=== PATIENT | male | born 1955 | race Hispanic/Latino ===

== ENCOUNTER 2019-01-09 09:46 | Emergency (ER) | payer BC ==
[~2019-01-09] VITALS: Ht 180.3 cm; Wt 111.1 kg
[~2019-01-09 09:46] MED LIST: ASPIRIN325 MG PO; DICYCLOMINE PO; HYDROCHLOROTHIA25 MG PO; NORCO 7.5-3251 EACH PO
[2019-01-09] MEDS ORDERED: IBUPROFEN 200 MG TAB PO STA (10:22)
[2019-01-09] MEDS ORDERED: LIDOCAINE HCL 1% LOCAL INJ 20 ML VIAL INJ STA (10:22)
[2019-01-09] MEDS ORDERED: HYDROCODONE/APAP 5MG-325MG TAB PO ONE (10:30)
[2019-01-09] MEDS ORDERED: ONDANSETRON HCL 4 MG ORAL DISINTEGRATING TAB PO ONE (10:30)
[2019-01-09] MEDS ORDERED: ONDANSETRON HCL 4 MG ORAL DISINTEGRATING TAB ONE (10:52)
[2019-01-09] MEDS ORDERED: HYDROCODONE/APAP 5MG-325MG TAB ONE (10:58)
[2019-01-09] MEDS ORDERED: IBUPROFEN 200 MG TAB ONE (10:58)
--- NOTE | 2019-01-09 11:00 | Diagnostic Imaging Report ---
Cervical Spine Two Views CPT code: 43727 Indication: Nerve pain Technique: AP, swimmer's and lateral views of cervical spine obtained. Comparison: None Findings: Cervical vertebral bodies can be visualized to C7. Mild forward flexion at C4/5. No listhesis. No prevertebral soft tissue swelling. Disc space narrowing is identified at C4/5 and C5/6. Osteophyte formation is seen at C4, C5, C6. The facets and spinous processes are normally aligned. Alignment is maintained on the AP view. The lateral masses of C1 are symmetric. The dens is intact. The skull base and upper chest normal. IMPRESSION: Degenerative changes of the spine with mild forward flexion at C4/5. Signed by: Dr. Tania Morejon MD on 01/09/2019 10:57 AM
[2019-01-09 12:21] VITALS: BP 119/73
== END 2019-01-09 11:40 | disposition home or self-care (01) ==
LOC: FSED 09:46
DX: L02.213 Cutaneous abscess of chest wall (principal); L03.313 Cellulitis of chest wall; M54.2 Cervicalgia; M47.892 Other spondylosis, cervical region; M50.20 Other cervical disc displacement, unspecified cervical region
CPT/HCPCS: 10061; 72040; 96372; 99283; J2001; Q0162

== ENCOUNTER → 2019-02-16 | Outpatient (CLI) | payer BC ==
--- NOTE | 2019-02-16 12:24 | Diagnostic Imaging Report ---
EXAMINATION: MRI of the cervical spine without contrast HISTORY: Neck pain radiating into the right shoulder and upper extremity with numbness and extending to the fingers COMPARISON: Cervical spine x-rays of 01/09/2019. TECHNIQUE: Sagittal T1, T2, STIR; axial T2, gradient echo. Image quality: Motion artifact limits evaluation of some of the sequences. FINDINGS: Curvature: Straightening of the cervical lordosis which may be related to muscle with possible positional. Vertebrae: Diffuse increase T1 and T2 signal intensity within the C4, C5, C6, C7 and T1 as well as the partially visualized T4 vertebral bodies, which may be related to fatty replacement perhaps from prior radiation therapy in the appropriate clinical setting or artifactual. Focal high T1 and T2 hyperintensity in the T4 vertebral body may correspond alternatively to a hemangioma. Otherwise no evidence of neoplasm, infection, or fracture. Foramen magnum: No mass, Chiari malformation, or basilar invagination. Spinal Cord: Normal size and signal intensity. Soft Tissues: Unremarkable. Degenerative changes: C1-C2: Unremarkable. C2-C3: Mild facet arthrosis without canal or foraminal stenosis. C3-C4: Minimal disc bulge, mild uncovertebral and facet arthrosis. Mild bilateral foraminal narrowing. C4-C5: Mild facet arthrosis without stenosis C5-C6: Disc osteophyte complex formation, bilateral uncovertebral and facet arthrosis. Mild spinal canal and severe bilateral foraminal stenoses, compression upon the exiting C6 nerve roots is suspected. C6-C7: Disc osteophyte complex formation, bilateral uncovertebral and facet arthrosis. Mild canal narrowing. Severe bilateral foraminal stenoses. Compression upon the exiting C7 nerve roots cannot be excluded. C7-T1: Bilateral facet arthrosis mild bilateral foraminal stenosis. IMPRESSION: 1. Mild degenerative spinal canal stenosis at C5-C6 and C6-7. 2. Severe degenerative foraminal stenosis bilaterally at C5-C6 and C6-7 as described. 3. Normal cervical spinal cord. 4. Abnormal bone marrow signal intensity within the mid cervical spine as detailed above. Signed by: Dr. Patricia Carlson M.D. on 02/16/2019 12:20 PM
--- NOTE | 2019-02-16 15:27 | Diagnostic Imaging Report ---
TECHNIQUE: Magnetic resonance imaging of the RIGHT SHOULDER was performed WITHOUT injected contrast. HISTORY: Shoulder pain, arm pain COMPARISON: None available. FINDINGS: Motion artifact partially limits sensitivity and specificity of the exam. MUSCLES AND TENDONS: Rotator Cuff: Tendons: Supraspinatus and Infraspinatus: A full-thickness tear involving the anterior supraspinatus, the full-thickness defect measures 1.9 cm (ML) x 1.4 cm (AP). Teres Minor: Intact Subscapularis: Intact Muscles: No focal muscle atrophy. Biceps Tendon: The long head of the biceps tendon is intact and within the intertubercular groove. GLENOHUMERAL JOINT: Glenoid Labrum: The motion artifact limits evaluation of the labrum. The posterosuperior labrum appears attenuated with mild contour irregularity. On the axial images, there appears to be an oblique displaced tear at the base of the anteroinferior labrum, the motion artifacts prevent confirmation on the coronal views. Articular Cartilage: Diffuse intermediate to high-grade erosions of the glenoid cartilage. Joint Fluid: No effusion. ACROMIOCLAVICULAR JOINT: Mild hypertrophic degenerative changes of the acromioclavicular joint. No effusion. BONE: The acromion is unremarkable. No focal or infiltrative bone marrow replacing abnormality. No acute fracture. SOFT TISSUES: Trace fluid within the subacromial/subdeltoid bursa, in keeping with full-thickness rotator cuff tear. Moderate fluid within the subcoracoid recess. IMPRESSION: 1. Full-thickness tear involving the anterior supraspinatus tendon. 2. Moderate subcoracoid bursitis. 3. Oblique displaced tear at the base of the anteroinferior labrum and degenerative tearing of the posterosuperior labrum. 4. Mild glenohumeral and acromioclavicular osteoarthrosis. Signed by: Dr. Herbert Ramirez D.O., M.M.M. on 02/16/2019 3:24 PM
== END ==
LOC: MRI 09:31
PROVIDERS: ATTEND Specialist
DX: M54.2 Cervicalgia (principal); M25.511 Pain in right shoulder; S46.811A Strain of other muscles, fascia and tendons at shoulder and upper arm level, right arm, initial encounter; M75.51 Bursitis of right shoulder; M19.011 Primary osteoarthritis, right shoulder
CPT/HCPCS: 72141

== ENCOUNTER → 2019-03-16 | Day surgery (SDC) | payer BC ==
[2019-03-14 09:39] LABS: ANION GAP 14.6 mmol/L (8-16); BLOOD UREA NITROGEN 9 mg/dL (7-26); BUN/CREATININE RATIO 11 (6-25); CALCIUM 9.5 mg/dL (8.4-10.2); CARBON DIOXIDE 30 mmol/L (22-29); CHLORIDE 100 mmol/L (98-107); EST GLOMERULAR FILTRATION RATE > 60 ML/MIN (60-); GLUCOSE 88 mg/dL (74-118); POTASSIUM 4.6 mmol/L (3.5-5.1); SODIUM 140 mmol/L (136-145)
[~2019-03-16] MED LIST changes: +ACETAMINOPHEN 1000 MG/100 ML 100 ML IV ONE; +ACETAMINOPHEN 1000 MG/100 ML IV ONE; +CEFAZOLIN SOD 1 GM/NS 50ML 100 ML IV ONE; +DESFLURANE 240 ML BTL INH ONE; +DEXAMETHASONE SOD PHOS INJ 4 MG/ML VIAL ONE; +EPINEPHRINE 1 MG/ML 30ML VIAL ONE; +FENTANYL CITRATE/PF 100MCG/2 ML INJ ONE; +GLYCOPYRROLATE INJ 1MG/ 5 ML SYR ONE; +LIDOCAINE 2% /EPINEPHRINE 20 ML SDV INJ ONE; +LIDOCAINE HCL 2% LOCAL INJ 5 ML SDV VIAL INJ ONE; +MELOXICAM7.5 MG PO; +MIDAZOLAM HCL 2 MG/2 ML VIAL ONE; +NEOSTIGMINE 5 MG/5ML SYR ONE; +PANTOPRAZOLE SO40 MG PO; +PROPOFOL IV EMULSION 10 MG/ML 20 ML VIAL ONE; +ROCURONIUM BROMIDE 10 MG/ML 5ML VIAL ONE; +ROPIVACAINE 0.5% 5 MG/ML 30 ML SDV ONE; +SUCCINYLCHOLINE 200 MG/10 ML SYR ONE; +TRIAMTERENE-HCTZ1 EA PO; +ranitidine PO
--- OUTSIDE RECORDS SUMMARY | 2019-03-16 06:36 | XMS REPORT ---
[facility] Address Unknown Phone Unavailable Care Team Providers Care Senior Applications Engineer Name Role Phone JAVAD CAMERON Unavailable Unavailable Magda SANTOYO Unavailable Unavailable Problems This patient has no known problems. Allergies, Adverse Reactions, Alerts This patient has no known allergies or adverse reactions. Medications This patient has no known medications. Results Test Description Test Time Test Comments Text Results Atomic Results Result Comments MRI SHOULDER RIGHT WO 2019-02-16 15:08:00 [place] [address] Patient Name: QUIANA ASCENCIO MR #: [id number] : 1955 Age/Sex: 63/M Req #: [id number] Adm Physician: Ordered by: JAVAD CAMERON MD Report #: [id number] Location: MRI Room/Bed: Procedure: [id number] MRI/MRI SHOULDER RIGHT WO Exam Date: Exam Time: REPORT STATUS: Signed TECHNIQUE: Magnetic resonance imaging of the RIGHT SHOULDER was performed WITHOUT injected contrast. HISTORY: Shoulder pain, arm pain COMPARISON: None available. FINDINGS: Motion artifact partially limits sensitivity and specificity of the exam. MUSCLES AND TENDONS: Rotator Cuff: Tendons: Supraspinatus and Infraspinatus: A full-thickness tear involving the anterior supraspinatus, the full-thickness defect measures 1.9 cm (ML) x 1.4 cm (AP). Teres Minor: Intact Subscapularis: Intact Muscles: No focal muscle atrophy. Biceps Tendon: The long head of the biceps tendon is intact and within the intertubercular groove. GLENOHUMERAL JOINT: Glenoid Labrum: The motion artifact limits evaluation of the labrum. The posterosuperior labrum appears attenuated with mild contour irregularity. On the axial images, there appears to be an oblique displaced tear at the base of the anteroinferior labrum, the motion artifacts prevent confirmation on the coronal views. Articular Cartilage: Diffuse inter mediate to high-grade erosions of the glenoid cartilage. Joint Fluid: No effusion. ACROMIOCLAVICULAR JOINT: Mild hypertrophic degenerative changes of the acromioclavicular joint. No effusion. BONE: The acromion is unremarkable. No focal or infiltrative bone marrow replacing abnormality. No acute fracture. SOFT TISSUES: Trace fluid within the subacromial/subdeltoid bursa, in keeping with full-thickness rotator cuff tear. Moderate fluid within the subcoracoid recess. IMPRESSION: 1. Full-thickness tear involving the anterior supraspinatus tendon. 2. Moderate subcoracoid bursitis. 3. Oblique displaced tear at the base of the anteroinferior labrum and degenerative tearing of the posterosuperior labrum. 4. Mild glenohumeral and acromioclavicular osteoarthrosis. Signed by: Dr. Melo Ramirez D.O., M.M.M. on 02/16/2019 3:24 PM Dictated By: MELO RAMIREZ DO 1524 Transcribed By: Riaz CRONIN on 02/16/19 1524 COPY TO: JAVAD CAMERON MD MRI SPINE CERVICAL WO 2019-02-16 12:13:00 [place] [address] Patient Name: QUIANA ASCENCIO JR MR #: [id number] : 1955 Age/Sex: 63/M Req #: [id number] Adm Physician: Ordered by: JAVAD CAMERON MD Report #: [id number] Location: MRI Room/Bed: Procedure: [id number] MRI/MRI SPINE CERVICAL WO Exam Date: Exam Time: REPORT STATUS: Signed EXAMINATION: MRI of the cervical spine without contrast HISTORY: Neck pain radiating into the right shoulder and upper extremity with numbness and extending to the fingers COMPARISON: Cervical spine x-rays of 01/09/2019. TECHNIQUE: Sagittal T1, T2, STIR; axial T2, gradient echo. Image quality: Motion artifact limits evaluation of some of the sequences. FINDINGS: Curvature: Straightening of the cervical lordosis which may be related to muscle with possible positional. Vertebrae: Diffuse increase T1 and T2 signal intensity within the C4, C5, C6, C7 and T1 as well as the partially visualized T4 vertebral bodies, which may be related to fatty replacement perhaps from prior radiation therapy in the appropriate clinical setting or artifactual. Focal high T1 and T2 hyperintensity in the T4 vertebral body may correspond alternatively to a hemangioma. Otherwise no evidence of neoplasm, infection, or fracture. Foramen magnum: No mass, Chiari malformation, or basilar invagination. Spinal Cord: Normal size and signal intensity. Soft Tissues: Unremarkable. Degenerative changes: C1-C2: Unremarkable. C2-C3: Mild facet arthrosis without canal or foraminal stenosis. C3-C4: Minimal disc bulge, mild uncovertebral and facet arthrosis. Mild bilateral foraminal narrowing. C4-C5: Mild facet arthrosis without stenosis C5-C6: Disc osteophyte complex formation, bilateral uncovertebral and facet arthrosis. Mild spinal canal and severe bilateral foraminal stenoses, compression upon the exiting C6 nerve roots is suspected. C6-C7: Disc osteophyte complex formation, bilateral uncovertebral and facet arthrosis. Mild canal narrowing. Severe bilateral foraminal stenoses. Compression upon the exiting C7 nerve roots cannot be excluded. C7-T1: Bilateral facet arthrosis mild bilateral foraminal stenosis. IMPRESSION: 1. Mild degenerative spinal canal stenosis at C5-C6 and C6-7. 2. Severe degenerative foraminal stenosis bilaterally at C5-C6 and C6-7 as described. 3. Normal cervical spinal cord. 4. Abnormal bone marrow signal intensity within the mid cervical spine as detailed above. Signed by: Dr. Patricia Carlson M.D. on 02/16/2019 12:20 PM Dictated By: PATRICIA CARLSON MD 1220 Transcribed By: RAYRAY on 02/16/19 1220 COPY TO: JAVAD CAMERON MD SPINE 2--3 VE - [facility] 2019-01-09 10:53:00 [place] [address] Patient Name: QUIANA ASCENCIO JR MR #: [id number] : 1955 Age/Sex: 63/M Req #: [id number] Adm Physician: Ordered by: ERICA SANTOYO MD Report #: [id number] Location: [facility] Room/Bed: Procedure: [id number] MARIE/Riaz SPINE 2--3 VE - [facility] Exam Date: 01/09/19 Exam Time: 1040 REPORT STATUS: Signed Cervical Spine Two Views CPT code: 97537 Indication: Nerve pain Technique: AP, swimmer's and lateral views of cervical spine obtained. Comparison: None Findings: Cervical vertebral bodies can be visualized to C7. Mild forward flexion at C4/5. No listhesis. No prevertebral soft tissue swelling. Disc space narrowing is identified at C4/5 and C5/6. Osteophyte formation is seen at C4, C5, C6. The facets and spinous processes are normally aligned. Alignment is maintained on the AP view. The lateral masses of C1 are symmetric. The dens is intact. The skull base and upper chest normal. IMPRESSION: Degenerative changes of the spine with mild forward flexion at C4/5. Signed by: Dr. Tania Morejon MD on 01/09/2019 10:57 AM Dictated By: TANIA MOREJON MD [id number] Transcribed By: RAYRAY on 01/09/19 8594 COPY TO: ERICA SANTOYO MD
[2019-03-16 13:50] VITALS: BP 111/73
--- NOTE | 2019-03-18 13:41 | Operative Report ---
DATE OF PROCEDURE: 03/16/2019 SURGEON: Nabil Pina MD PREOPERATIVE DIAGNOSES: 1. Right shoulder rotator cuff tear. 2. Right shoulder acromioclavicular joint arthritis. POSTOPERATIVE DIAGNOSES: 1. Right shoulder rotator cuff tear. 2. Right shoulder acromioclavicular joint arthritis. OPERATIONS AND PROCEDURES PERFORMED: The patient underwent a right shoulder examination under anesthesia, right shoulder arthroscopy, right shoulder debridement of synovitis, right shoulder arthroscopic rotator cuff reconstruction, right shoulder arthroscopic distal clavicle resection. SCHOOL PSYCHOLOGY PROFESSOR: CHAYO Espinoza. ANESTHESIA: General endotracheal intubation anesthesia. IV FLUIDS: Per anesthesia record. BRIEF DESCRIPTION OF THE PATIENT'S OPERATIVE PROCEDURE: Mr. Goldman was taken to the operating room and placed in the supine position on the operating table. Following induction of general anesthesia as well as endotracheal intubation, the patient's right upper extremity was examined under anesthesia. He was found to have full passive range of motion of the shoulder joint. There was no evidence of instability. The patient's upper extremity was prepped and draped in standard surgical fashion. Standard posterior lateral and anterior portals were created without difficulty. The scope was placed within the shoulder joint atraumatically. Examination of the glenohumeral articulation found evidence of chondromalacia of the humeral head and glenoid surfaces. There were no loose bodies in the shoulder joint. There was a full-thickness rotator cuff tear along the anterior leading edge of the rotator cuff tissue. There was diffuse synovitis in the shoulder joint. A shaver was placed in the shoulder joint and the synovitis was debrided. Chondroplasties of the humeral head and glenoid were also performed at this time. The rotator cuff injury was also debrided. The insertion site for the rotator cuff was also debrided to a bleeding bony bed. The shoulder was inflated with sterile normal saline. The scope was placed in subacromial space and significant bursal inflammation was encountered. A lateral portal was created through an outside in technique. The shaver was placed in the subacromial space and a bursectomy was performed. The rotator cuff tear was easily identified. An anterolateral accessory portal was created. The rotator cuff injury was further debrided. The insertion site was also further debrided to a bleeding bony bed. A single triple loaded suture anchor was inserted into the greater tuberosity of the humerus. The suture arms from this anchor were then woven through the rotator cuff tissue. The rotator cuff tissue was then advanced and tied firmly over the insertion site. This resulted in complete reapproximation of the patient's rotator cuff injury. There was a significantly downward sloping acromion. The coracoacromial ligament was resected. An acromioplasty was performed at this time. Attention was then turned to the acromioclavicular joint. The anterior portal was transferred into the subacromial space. The shaver was then used to resect a 1 cm section of the distal clavicle. Once this was achieved, the scope was transferred to the anterior portal to confirm appropriate resection of the distal clavicle. The shoulder was inflated with sterile normal saline. The portal sites were closed and sterile dressings were applied. The patient was provided a shoulder immobilizer, awakened, and taken to the postanesthesia care in stable condition. Christina Kunz acted as dietary assistant for this case and was necessary for both prepping and draping the patient as well as the positioning of the arm and passage of sutures that allowed this case to be successful. MD MARLON Bustamante/CRISTIANE /[id number]
== END | disposition home or self-care (01) ==
LOC: OR 06:26
PROVIDERS: ATTEND Specialist
DX: M75.121 Complete rotator cuff tear or rupture of right shoulder, not specified as traumatic (principal); M19.011 Primary osteoarthritis, right shoulder; M54.12 Radiculopathy, cervical region; Z96.652 Presence of left artificial knee joint; Z01.810 Encounter for preprocedural cardiovascular examination; Z01.812 Encounter for preprocedural laboratory examination; M94.211 Chondromalacia, right shoulder; M65.811 Other synovitis and tenosynovitis, right shoulder
CPT/HCPCS: 29824; 29827; 36415; 80048; 93005; C1713; J0131; J0690; J1100; J2001 ×2; J2250; J2704; J2795; J3010; J3490

== ENCOUNTER → 2021-05-27 | Day surgery (SDC) | payer OTHER ==
[~2021-05-27] MED LIST changes: -ACETAMINOPHEN 1000 MG/100 ML 100 ML IV ONE; -ACETAMINOPHEN 1000 MG/100 ML IV ONE; -CEFAZOLIN SOD 1 GM/NS 50ML 100 ML IV ONE; -DESFLURANE 240 ML BTL INH ONE; -DEXAMETHASONE SOD PHOS INJ 4 MG/ML VIAL ONE; -EPINEPHRINE 1 MG/ML 30ML VIAL ONE; -GLYCOPYRROLATE INJ 1MG/ 5 ML SYR ONE; -LIDOCAINE 2% /EPINEPHRINE 20 ML SDV INJ ONE; -NEOSTIGMINE 5 MG/5ML SYR ONE; -ROCURONIUM BROMIDE 10 MG/ML 5ML VIAL ONE; -ROPIVACAINE 0.5% 5 MG/ML 30 ML SDV ONE; -SUCCINYLCHOLINE 200 MG/10 ML SYR ONE
[2021-05-27 13:50] VITALS: BP 107/68
== END | disposition home or self-care (01) ==
LOC: OR 10:26
PROVIDERS: ATTEND Internal Medicine Gastroenterology
DX: K21.9 Gastro-esophageal reflux disease without esophagitis (principal); K63.5 Polyp of colon; K29.60 Other gastritis without bleeding; K29.50 Unspecified chronic gastritis without bleeding; K20.90 Esophagitis, unspecified without bleeding; K57.30 Diverticulosis of large intestine without perforation or abscess without bleeding; K64.8 Other hemorrhoids; K44.9 Diaphragmatic hernia without obstruction or gangrene; Z85.01 Personal history of malignant neoplasm of esophagus; D49.1 Neoplasm of unspecified behavior of respiratory system; R03.0 Elevated blood-pressure reading, without diagnosis of hypertension; Z01.810 Encounter for preprocedural cardiovascular examination; Z01.812 Encounter for preprocedural laboratory examination; Z20.822 Contact with and (suspected) exposure to COVID-19; Z68.35 Body mass index [BMI] 35.0-35.9, adult; Z92.21 Personal history of antineoplastic chemotherapy; Z92.3 Personal history of irradiation; Z87.891 Personal history of nicotine dependence
CPT/HCPCS: 43239; 45378; 45384; 93005; J2001; J2250; J3010; U0002

== ENCOUNTER 2024-01-25 05:22 | Observation (INO) | payer MEDICARE ==
[2024-01-22 12:55] LABS: BASOPHILS % 0.3 % (0.0-1.0); EOSINOPHILS # (AUTO) 0.2 (0.0-0.4); HEMATOCRIT 46.9 % (38.2-49.6); HEMOGLOBIN 14.8 g/dL (14.0-18.0); LYMPHOCYTES # (AUTO) 2.7 (1.0-3.2); LYMPHOCYTES % 34.3 % (18.0-39.1); MEAN CORPUSCULAR HEMOGLOBIN 29.7 pg (28-32); MEAN CORPUSCULAR HGB CONC 31.6 g/dL (31-35); MONOCYTES # (AUTO) 0.7 (0.2-0.8); MONOCYTES % 8.1 % (4.4-11.3); NEUTROPHILS # (AUTO) 4.3 (2.1-6.9); NEUTROPHILS % 53.9 % (38.7-80.0); PLATELET COUNT 213 x10e3/uL (140-360); RED BLOOD COUNT 4.99 x10e6/uL (4.3-5.7); RED CELL DISTRIBUTION WIDTH 13.2 % (11.7-14.4); WHITE BLOOD COUNT 7.99 x10e3/uL (4.8-10.8)
[2024-01-22 13:16] LABS: ANION GAP 11.7 mmol/L (8-16); CALCIUM 9.6 mg/dL (8.4-10.2); CREATININE, SERUM 0.78 mg/dL (0.72-1.25); POTASSIUM 4.7 mmol/L (3.5-5.1)
[~2024-01-25 05:22] MED LIST changes: +ADVIL100 M1; +ATORVASTATIN CA20 MG PO; -FENTANYL CITRATE/PF 100MCG/2 ML INJ ONE; +FLOMAX0.4 MG PO; +FUROSEMIDE40 MG PO; -LIDOCAINE HCL 2% LOCAL INJ 5 ML SDV VIAL INJ ONE; +LOSARTAN-HCTZ1 EACH; -MIDAZOLAM HCL 2 MG/2 ML VIAL ONE; +OMEGA 3 1,0001 EACH PO; +OMEPRAZOLE10 MG; +OZEMPIC0.25 MG/02; -PROPOFOL IV EMULSION 10 MG/ML 20 ML VIAL ONE
[2024-01-25] MEDS: LACTATED RINGER'S 1,000 ML ONE (05:47)
[2024-01-25] MEDS: GABAPENTIN 300 MG CAP ONE (05:48)
[2024-01-25] MEDS: CEFAZOLIN SODIUM 2 GM ONE (05:48)
[2024-01-25] MEDS: CELECOXIB 200 MG CAP ONE (05:48)
[2024-01-25] MEDS: DEXAMETHASONE SOD PHOS 10 MG/1 ML VIAL ONE (05:48)
[2024-01-25] MEDS ORDERED: SODIUM CHLORIDE 0.9% 500ML 500 ML ONE (06:45)
[2024-01-25] MEDS ORDERED: TRANEXAMIC ACID 20 ML ONE (06:45)
[2024-01-25] MEDS ORDERED: Vancomycin IV 500 MG ONE (06:45)
[2024-01-25] MEDS ORDERED: FENTANYL CITRATE/PF 100MCG/2 ML INJ ONE ×3 (07:05→12:10)
[2024-01-25] MEDS ORDERED: ROPIVACAINE 0.5% 5 MG/ML 30 ML SDV ONE (07:06)
[2024-01-25] MEDS ORDERED: MIDAZOLAM HCL 2 MG/2 ML VIAL ONE (07:06)
[2024-01-25] MEDS ORDERED: LIDOCAINE 2% /EPINEPHRINE 20 ML SDV INJ ONE (07:06)
[2024-01-25] MEDS ORDERED: ROPIVACAINE 246.25 MG, EPINEPHRINE HCL 1:1000 1ML 0.5 MG, CLONIDINE HCL 0.08 MG, KETORO... INJ ONE (08:00)
[2024-01-25] MEDS ORDERED: HYDROCODONE/APAP 5MG-325MG TAB PO PRN (09:00)
[2024-01-25] MEDS ORDERED: ASPIRIN 325 MG TAB PO SCH (09:00)
[2024-01-25] MEDS ORDERED: DIPHENHYDRAMINE HCL INJ 50 MG/ML VIAL IV PRN (09:00)
[2024-01-25] MEDS ORDERED: ONDANSETRON HCL INJ 2MG/ML 2ML 2 MG/ML VIAL IV PRN (09:00)
[2024-01-25] MEDS ORDERED: DOCUSATE SODIUM 100 MG CAP PO PRN (09:00)
[2024-01-25] MEDS ORDERED: SODIUM CHLORIDE 0.9% 1000ML 1,000 ML IV SCH (09:00)
[2024-01-25] MEDS ORDERED: HYDROCODONE/APAP 7.5MG-325MG 1 EA TAB PO PRN (09:00)
[2024-01-25] MEDS: HYDROCODONE/APAP 7.5MG-325MG 1 EA TAB PO ONE (09:50)
[2024-01-25] MEDS ORDERED: HYDROCODONE/APAP 7.5MG-325MG 1 EA TAB ONE (09:55)
[2024-01-25 10:45] VITALS: BP 125/75; PULSE 86; RESP 16; O2SAT 96
[2024-01-25] MEDS ORDERED: ASPIRIN81 MG PO (11:20)
[2024-01-25] MEDS ORDERED: SEVOFLURANE INHAL SOLN 250 ML PEN BTL ONE (13:06)
[2024-01-25] MEDS ORDERED: DEXMEDETOMIDINE HCL 200 MCG/2 ML VIAL ONE (13:06)
[2024-01-25] MEDS ORDERED: ONDANSETRON HCL INJ 2MG/ML 2ML 2 MG/ML VIAL ONE (13:06)
[2024-01-25] MEDS ORDERED: PROPOFOL IV EMULSION 10 MG/ML 20 ML VIAL ONE (13:06)
[2024-01-25] MEDS ORDERED: EPHEDRINE SULFATE INJ 50 MG/ML VIAL ONE (13:06)
[2024-01-25] MEDS ORDERED: PHENYLEPHRINE HCL 1% 10 MG/ML VIAL ONE (13:06)
[2024-01-25] MEDS ORDERED: ACETAMINOPHEN 1000 MG/100 ML IV ONE (13:06)
[2024-01-25] MEDS ORDERED: LIDOCAINE HCL 2% LOCAL INJ 5 ML SDV VIAL INJ ONE (13:06)
[2024-01-26] MEDS ORDERED: ACETAMINOPHEN 1000 MG/100 ML IV PRN (09:00)
== END 2024-01-25 11:05 | disposition home health service (06) ==
LOC: OR 05:22 → PACU V 08:49
PROVIDERS: ADMIT Specialist; ATTEND Specialist
DX: M17.11 Unilateral primary osteoarthritis, right knee (principal); Z96.652 Presence of left artificial knee joint; I10 Essential (primary) hypertension; E78.5 Hyperlipidemia, unspecified; G47.33 Obstructive sleep apnea (adult) (pediatric); K76.0 Fatty (change of) liver, not elsewhere classified; Z01.812 Encounter for preprocedural laboratory examination; Z85.819 Personal history of malignant neoplasm of unspecified site of lip, oral cavity, and pharynx; Z92.3 Personal history of irradiation; Z87.891 Personal history of nicotine dependence; Z79.899 Other long term (current) drug therapy; Z79.82 Long term (current) use of aspirin
CPT/HCPCS: 27447; 36415; 73560; 80048; 85025; 86850; 86900; 97110; 97116; 97161; C1713 ×2; C1776 ×4; G0378; J0131; J0171; J1100; J1885; J2001 ×2; J2250; J2371; J2405; J2704; J2795; J3010; J3370; J7040; J7121

== ENCOUNTER 2024-03-25 12:47 | Outpatient (RCR) | payer MEDICARE ==
[~2024-03-25 12:47] MED LIST changes: +ASPIRIN81 MG PO
== END 2024-04-07 ==
LOC: PT 12:47
PROVIDERS: ATTEND Physician Assistant
DX: Z47.1 Aftercare following joint replacement surgery (principal); Z96.651 Presence of right artificial knee joint; M62.81 Muscle weakness (generalized); M25.561 Pain in right knee; M25.661 Stiffness of right knee, not elsewhere classified; R26.89 Other abnormalities of gait and mobility